=== PATIENT | female | born 1960 | race Caucasian/White ===

== ENCOUNTER 2024-05-17 11:08 | Outpatient (CLI) | payer MEDICARE | END 2024-05-17 11:09 | disposition home or self-care (01) | LOC: CSHMAMMO 11:08 | PROVIDERS: ATTEND Nurse Practitioner | DX: Z12.31 Encounter for screening mammogram for malignant neoplasm of breast (principal) | CPT/HCPCS: 77063; 77067 ==

== ENCOUNTER 2024-06-08 09:03 | Outpatient (CLI) | payer MEDICARE ==
[2024-06-08 10:33] LABS: #Basophils 0.06 10x3/uL (0.0-0.2); #Eosinophils 0.27 10x3/uL (0.0-0.5); #Monocytes 0.63 10x3/uL (0.0-1.1); #Neutrophils 7.55 10x3/uL (1.5-8.4); %Basophils 0.5 % (0.0-2.0); %Eosinophils 2.4 % (0.0-6.0); %Lymphocytes 23.2 % (18.0-47.0); %Monocytes 5.7 % (0.0-10.0); %Neutrophils 67.8 % (40.0-75.0); Hemoglobin 11.9 g/dL (12.0-15.5); Mean Corpuscular HGB CONC 31.3 g/dL (32.0-36.0); Mean Corpuscular Hemoglobin 27.5 pg (27.0-33.0); Mean Platelet Volume 8.7 fL (7.4-10.4); Platelet Count 402 10x3/uL (150-450); RBC Distribution Width 12.9 % (11.5-14.5); Red Blood Cell (RBC) Count 4.32 10x6/uL (3.90-5.03); White Blood Cell (WBC) Count 11.2 10x3/uL (3.5-10.5)
[2024-06-08 10:57] LABS: INR-International Normal Ratio 0.9; PTT 31.6 sec (22.0-33.0); Prothrombin Time 10.3 sec (9.5-12.1)
[2024-06-08 11:18] LABS: ALT (SGPT) 9 U/L (8-55); AST (SGOT) 11 U/L (5-34); Albumin 3.6 g/dL (3.4-4.8); Alkaline Phosphatase 62 U/L (40-110); Anion Gap 14 mmol/L (10-20); BUN (Urea Nitrogen) 7 mg/dL (9.8-20.1); Bilirubin, Direct 0.1 mg/dL (0.1-0.3); Bilirubin, Total 0.3 mg/dL (0.2-1.2); Calc. Creatinine Clearance 0 mL/min (70-130); Calcium 8.6 mg/dL (7.8-10.44); Carbon Dioxide 23 mmol/L (23-31); Chloride 107 mmol/L (98-107); Estimated GFR 98; Glucose 97 mg/dL (80-115); HIV (1/2) Antibody/Antigen Non-Reactive (NonReactive); HIV 1/2 INDEX 0.17 S/CO (<1.00); Potassium 4.1 mmol/L (3.5-5.1); Protein, Total 6.7 g/dL (5.8-8.1); Sodium 140 mmol/L (136-145)
[2024-06-08 11:19] LABS: Syphilis Antibody Nonreactive (Nonreactive); Syphilis Antibody Index 0.09 S/CO (<1.00 Non-Reactive)
[2024-06-08 15:48] LABS: Hep C IgG Ab NONREACTIVE S/CO (NonReactive); Hep C Index 0.08 S/CO (0-0.79)
== END 2024-06-08 09:04 | disposition home or self-care (01) ==
LOC: CSHLAB 09:03
PROVIDERS: ATTEND Surgery
DX: Z01.812 Encounter for preprocedural laboratory examination (principal); K43.2 Incisional hernia without obstruction or gangrene
CPT/HCPCS: 80048; 80076; 85025; 85610; 85730; 86780; 86803; 87389

== ENCOUNTER 2024-06-09 06:15 | Day surgery (SDC) | payer MEDICARE ==
[2024-06-08 09:59] VITALS: BMI 25.8
[2024-06-09] MEDS ORDERED: PROPOFOL 20 ML ONE (07:01)
[2024-06-09] MEDS ORDERED: fentaNYL 50 mcg/mL 1 mL Vial ONE ×2 (07:02→10:44)
[2024-06-09] MEDS ORDERED: Rocuronium Bromide 10 MG/ML (10ML VIAL) ONE ×2 (07:02→07:05)
[2024-06-09] MEDS ORDERED: Lidocaine 1% PF 5 ML VIAL ONE (07:02)
[2024-06-09] MEDS ORDERED: Sevoflurane 250 ML INH ANEST BOTTLE ONE (07:11)
[2024-06-09] MEDS ORDERED: Bupivacaine/Epinephrine 0.25% 30 ML VIAL ONE (07:15)
[2024-06-09] MEDS ORDERED: CEFAZOLIN 2 GM VIAL ONE (07:55)
[2024-06-09] MEDS ORDERED: PROPOFOL 40 ML ONE (08:48)
[2024-06-09] MEDS ORDERED: Dexamethasone 20 MG/5 ML VIAL ONE (08:57)
[2024-06-09] MEDS ORDERED: Ondansetron PF 4 MG/2 ML Vial ONE (08:57)
[2024-06-09] MEDS ORDERED: Ketorolac Tromethamine 30 MG (1 mL) VIAL ONE (09:38)
[2024-06-09] MEDS ORDERED: SUGAMMADEX SODIUM 200 MG/2 ML VIAL ONE (09:38)
[2024-06-09] MEDS ORDERED: Dexmedetomidine 200 MCG/2 ML VIAL ONE (09:50)
[2024-06-09] MEDS ORDERED: oxyCODONE 5 MG TAB ONE (11:24)
== END 2024-06-09 11:50 | disposition home or self-care (01) ==
LOC: CSHSDC 06:15
PROVIDERS: ATTEND Surgery
PROC: 0WUF4JZ Supplement Abdominal Wall with Synthetic Substitute, Percutaneous Endoscopic Approach (ICD-10-PCS; principal; 2024-06-09)
DX: K43.2 Incisional hernia without obstruction or gangrene (principal); K58.9 Irritable bowel syndrome, unspecified; K21.9 Gastro-esophageal reflux disease without esophagitis; F41.9 Anxiety disorder, unspecified; F32.A Depression, unspecified; I10 Essential (primary) hypertension; Z88.5 Allergy status to narcotic agent; Z90.49 Acquired absence of other specified parts of digestive tract; Z90.710 Acquired absence of both cervix and uterus; Z91.040 Latex allergy status
CPT/HCPCS: 49593; C1781; J1100; J1885; J2405; J2704; J3010; S2900

== ENCOUNTER 2025-06-21 11:00 | Outpatient (CLI) | payer MEDICARE | END 2025-06-21 11:01 | disposition home or self-care (01) | LOC: CSHMAMMO 11:00 | DX: Z12.31 Encounter for screening mammogram for malignant neoplasm of breast (principal); Z80.3 Family history of malignant neoplasm of breast | CPT/HCPCS: 77063; 77067 ==